=== PATIENT | female | born 1985 | race African-American/Black ===

== ENCOUNTER 2019-01-11 11:23 | Observation (INO) ==
[2019-01-11 11:57] LABS: Basophils # 0.1 10*3/uL (0.0-0.2); Basophils % 0.6 % (0.0-0.8); Eosinophils % 0.4 % (0.00-10.9); Hematocrit 41.7 VOL% (35.7-47.0); Hemoglobin 13.6 GM/DL (12.0-16.0); Immature Granulocytes % 0.3 %; Immature Granulocytes Absolute 0.03 #; Lymphocytes % 30.9 % (21.3-54.2); Mean Corpuscular HGB Conc 32.6 GM/DL (32-36); Mean Corpuscular Hemoglobin 31 PG (27-34); Mean Corpuscular Volume 96.3 FL (87-102); Monocytes # 0.5 10*3/uL (0.11-0.8); Monocytes % 5.1 % (1.7-12.7); Neutrophils % 62.7 % (38.7-73.9); Platelet Count 316 T/CUMM (130-400); Red Blood Count 4.33 MC/CUMM (3.8-5.5); Red Cell Distribution Width 13.3 % (9.3-17.3); White Blood Count 9.6 T/CUMM (4-12)
[2019-01-11 12:08] LABS: Apearance,Urine Slightly Hazy (Clear); Bilirubin,Urine Negative (Negative); Blood, Urine Negative (Negative); Glucose,Urine (UA) Negative (Negative); Ketones,Urine Negative (Negative); Mucus,Urine Occasional /LPF (Occasional); Nitrite,Urine Negative (Negative); Protein,Urine Negative; RBC,Urine 1 /HPF (0-4); Squamous Epithelial Cell,Urine Moderate /HPF (0-10); Urine Color Yellow (Yellow); WBC,Urine <1 /HPF (0-6)
[2019-01-11 12:22] LABS: Albumin 4.1 G/DL (3.4-5.0); Bilirubin,Total 1.2 MG/DL (0.2-1.0); Calcium 9.3 MG/DL (8.5-10.1); Osmolality,Calculated 271.7 MOS/KG (273-304); Potassium 3.9 MMOL/L (3.5-5.1); Total Protein 8.1 G/DL (6.4-8.3)
[2019-01-11] MEDS ORDERED: SODIUM CHLORIDE 0.9% 1,000 ML IV STA (13:21)
[2019-01-11] MEDS ORDERED: KETOROLAC 30 MG/1 ML VIAL IV STA (13:38)
[2019-01-11] MEDS ORDERED: KETOROLAC 30 MG/1 ML VIAL ONE (13:39)
[2019-01-11] MEDS ORDERED: KETOROLAC 10 MG TABLET PO PRN (14:07)
[2019-01-11] MEDS ORDERED: ONDANSETRON 4 MG/2 ML VIAL IV PRN (14:07)
[2019-01-11] MEDS ORDERED: ACETAMINOPHEN 325 MG TABLET PO PRN (14:07)
[2019-01-11] MEDS ORDERED: ALBUTEROL/IPRATROPIUM 3 ML NEB RESP TX PRN (14:07)
[2019-01-11] MEDS ORDERED: BISACODYL 5 MG TABLET PO PRN (14:07)
[2019-01-11] MEDS: LACTATED RINGERS 1,000 ML IV SCH (16:17)
[2019-01-11] MEDS: HYDROmorphone 2 MG/1 ML VIAL IV PRN (16:19)
[2019-01-11] MEDS: metroNIDAZOLE INJ 500 MG in PREMIX 1 EACH IV SCH (16:19)
[2019-01-11] MEDS: NICOTINE 21 MG/24 HR PATCH TRANSDERM SCH (16:28)
[2019-01-11] MEDS: PANTOPRAZOLE 40 MG TABLET PO SCH (16:28)
[2019-01-11] MEDS: PIPERACILLIN/TAZOBACTAM 3,375 MG in SODIUM CHLORIDE 0.9% 100 ML IV SCH (17:48)
[2019-01-12] MEDS: metroNIDAZOLE INJ 500 MG in PREMIX 1 EACH IV SCH ×4 (01:03→23:31)
[2019-01-12] MEDS: PIPERACILLIN/TAZOBACTAM 3,375 MG in SODIUM CHLORIDE 0.9% 100 ML IV SCH ×3 (02:28→18:00)
[2019-01-12] MEDS: HYDROmorphone 2 MG/1 ML VIAL IV PRN ×5 (02:34→23:49)
[2019-01-12 04:28] LABS: Basophils % 0.3 % (0.0-0.8); Eosinophils # 0.1 10*3/uL (0.0-0.87); Eosinophils % 0.7 % (0.00-10.9); Hematocrit 34.4 VOL% (35.7-47.0); Hemoglobin 11.3 GM/DL (12.0-16.0); Immature Granulocytes % 0.2 %; Immature Granulocytes Absolute 0.02 #; Lymphocytes # 3.9 10*3/uL (1.4-4.0); Lymphocytes % 44.7 % (21.3-54.2); Mean Corpuscular HGB Conc 32.8 GM/DL (32-36); Mean Corpuscular Hemoglobin 32 PG (27-34); Mean Corpuscular Volume 96.9 FL (87-102); Mean Platelet Volume 9.5 FL (9.6-12.0); Monocytes # 0.5 10*3/uL (0.11-0.8); Monocytes % 6.1 % (1.7-12.7); Neutrophils # 4.2 10*3/uL (1.4-7.4); Platelet Count 273 T/CUMM (130-400); Red Blood Count 3.55 MC/CUMM (3.8-5.5); Red Cell Distribution Width 13.1 % (9.3-17.3); White Blood Count 8.8 T/CUMM (4-12)
[2019-01-12 04:49] LABS: Albumin 3.2 G/DL (3.4-5.0); Bilirubin,Total 1.4 MG/DL (0.2-1.0); Calcium 8.5 MG/DL (8.5-10.1); Osmolality,Calculated 275.4 MOS/KG (273-304); Potassium 3.4 MMOL/L (3.5-5.1); Total Protein 6.4 G/DL (6.4-8.3)
[2019-01-12] MEDS: LACTATED RINGERS 1,000 ML IV SCH ×2 (06:42→20:19)
[2019-01-12] MEDS ORDERED: BUPIVACAINE 0.5% 50 ML VIAL ONE (10:16)
[2019-01-12] MEDS ORDERED: LIDOCAINE 1%/EPI INJ 20 ML VIAL ONE (10:16)
[2019-01-12] MEDS ORDERED: TISSUE ADHESIVE 1 EACH APPLICATOR TOP ONE (11:12)
[2019-01-12] MEDS ORDERED: MIDAZOLAM 2 MG/2 ML VIAL ONE (11:29)
[2019-01-12] MEDS ORDERED: fentaNYL 100 MCG/2 ML VIAL ONE (11:29)
[2019-01-12] MEDS ORDERED: DEXAMETHASONE 10 MG/1 ML VIAL ONE (11:29)
[2019-01-12] MEDS ORDERED: ROCURONIUM 100 MG/10 ML VIAL IV ONE (11:29)
[2019-01-12] MEDS ORDERED: ONDANSETRON 4 MG/2 ML VIAL ONE ×2 (11:29→11:49)
[2019-01-12] MEDS ORDERED: SEVOFLURANE 1 UNIT/15 MINUTE INH ONE (11:29)
[2019-01-12] MEDS ORDERED: PROPOFOL 200 MG/20 ML VIAL IV ONE (11:29)
[2019-01-12] MEDS ORDERED: KETOROLAC 30 MG/1 ML VIAL ONE (11:30)
[2019-01-12] MEDS ORDERED: GLYCOPYRROLATE 0.4 MG/2 ML VIAL ONE (11:30)
[2019-01-12] MEDS ORDERED: NEOSTIGMINE 10 MG/10 ML VIAL ONE (11:30)
[2019-01-12] MEDS ORDERED: HYDROmorphone 2 MG/1 ML VIAL ONE (11:50)
[2019-01-12] MEDS ORDERED: ONDANSETRON 4 MG/2 ML VIAL IV PRN (12:00)
[2019-01-12] MEDS: NICOTINE 21 MG/24 HR PATCH TRANSDERM SCH (15:47)
[2019-01-12] MEDS: PANTOPRAZOLE 40 MG TABLET PO SCH (16:06)
[2019-01-13] MEDS: PIPERACILLIN/TAZOBACTAM 3,375 MG in SODIUM CHLORIDE 0.9% 100 ML IV SCH ×2 (02:18→09:20)
[2019-01-13] MEDS: PANTOPRAZOLE 40 MG TABLET PO SCH (09:07)
[2019-01-13] MEDS: metroNIDAZOLE INJ 500 MG in PREMIX 1 EACH IV SCH (09:07)
[2019-01-13] MEDS: LACTATED RINGERS 1,000 ML IV SCH (09:11)
[2019-01-13] MEDS: NICOTINE 21 MG/24 HR PATCH TRANSDERM SCH (10:34)
[2019-01-13 12:20] VITALS: BP 114/60
== END 2019-01-13 12:46 | disposition home or self-care (01) ==
LOC: N.ED 11:23 → N.EDINP 11:23 → N.3E 16:03
PROVIDERS: ADMIT Surgery; ATTEND Surgery